=== PATIENT | female | born 1995 | race Caucasian/White ===

== ENCOUNTER 2024-08-13 18:14 | Emergency (ER) | payer OTHER, SELFPAY ==
[2024-08-13 18:14] VITALS: BMI 32.5
[2024-08-13 18:16] VITALS: BP 128/85
[2024-08-13 19:22] VITALS: BP 106/68
[2024-08-13] MEDS: TORADOL 30 MG IV (20:12)
[2024-08-13] MEDS: ZOFRAN 4 MG IV (20:12)
[2024-08-13] MEDS: NSS 1000 IV (20:13)
[2024-08-13 20:27] LABS: % Basophils 0.4 % (0-2); % Immature Granulocytes 0.3 % (0-0.5); % Lymphocytes 6.1 % (20.5-51.1); % Monocytes 2.8 % (1.7-9.3); % Neutrophils 90.4 % (42.2-75.2); Absolute Lymphocytes 0.5 10^3/uL (1.2-3.4); Absolute Monocytes 0.2 10^3/uL (0.1-0.6); Absolute Neutrophils 6.8 10^3/uL (1.4-6.5); Hematocrit 33.5 % (37.0-47.0); Hemoglobin 12.1 g/dL (12.0-16.0); Mean Corp Hgb Conc. 36.1 g/dL (33.0-37.0); Mean Corpuscular Hgb 28.8 pg (27.0-31.0); Mean Corpuscular Volume 79.8 fL (81.0-99.0); Mean Platelet Volume 9.4 fL (7.4-10.4); Nucleated Red Blood Cells % 0 %; Platelet Count 197 10^3/uL (130-400); Red Cell Dist. Width 12.7 % (11.5-14.5); White Blood Cell Count 7.5 10^3/uL (4.8-10.8)
[2024-08-13 20:46] LABS: Blood Urea Nitrogen 12 mg/dl (7-17); Calcium 8.9 mg/dl (8.4-10.2); Carbon Dioxide 24 mmol/L (22-30); Chloride 101 mmol/L (98-107); Estimated Creatinine Clearance > 125 ml/min; Glucose 154 mg/dl (70-99); Potassium 3.7 mmol/L (3.5-5.1); Sodium 139 mmol/L (135-145); eGFR > 60.00
[2024-08-13 20:49] VITALS: BP 96/68
[2024-08-13 20:50] VITALS: BP 96/68
[2024-08-13 21:00] VITALS: BP 89/69
--- NOTE | 2024-08-13 21:11 | ED.GENMED ---
History of Present Illness
General
Chief Complaint: Cold/Flu/URI Symptoms
Source: patient
Time Seen by Provider: 08/13/24 19:33
History of Present Illness
History of Present Illness:
29-year-old female presenting to the emergency department for evaluation after being diagnosed with pneumonia earlier today by urgent care, stating feels generally weak, nauseous, continued cough and had a fever of 104.2 this evening. Patient was
prescribed a Z-Evgeny and prednisone at the urgent care she was at earlier today. Notes that symptoms started mid week. Significant other who is also in the room with the patient was diagnosed with pneumonia as well about 2 weeks ago with similar
symptoms. Patient did take Tylenol today with last dose being around noon. No other concerns presently. Patient does report taking 2 negative COVID tests at home.
Past History
Past History
ED Past Medical History: Other (Removal of wisdom teeth)
ED Past Surgical History: None
Social History
Tobacco: Non-smoker
Alcohol: None
Drug: None
Personal: Single
Living: with family
Employment: Employed
Family History
Family History: Other (Celiac disease)
Review of Systems
Review of Systems
All Other Systems: ROS reviewed and negative except as documented in HPI and ROS
Phy Exam
Physical Exam
Physical Exam:
GENERAL: Alert , appears as if she is feeling unwell but in no acute distress
EYE: conjunctiva clear
NECK: Supple
ENT: o/p clr, mmm.
CARDIAC: Tachycardic rate and rhythm
LUNGS: Clear breath sounds bilaterally, no acute respiratory distress, no wheezes/rales/rhonchi
NEUROLOGICAL: Alert and oriented
SKIN: Warm and dry, skin intact.
MUSCULOSKELETAL: well perfused.
PSYCH: Normal and appropriate interaction.
Scores
Heart Failure Risk
Heart Failure Risk Score: Not Applicable
Heart Score for Chest Pain Patients
STEMI patient?: Not applicable
Withdrawal Assessment of Alcohol
Withdrawal Assessment Completed?: Not applicable
Sepsis
Sepsis Screening
Sepsis Assessment: Sepsis Ruled Out
Sepsis Screen
Sepsis Screen: Sepsis Ruled Out
Date: 08/13/24
Time: :
Course
Orders/Labs/Results
Orders:
Orders
08/13/24 19:45
0.9% Sodium Chloride 1000 ml [Nss] 1,000 ml IV BOLUS
Ketorolac [Toradol] 30 mg IV NOW STA
Ondansetron Injectable [Zofran] 4 mg IV NOW STA
08/13/24 20:09
Basic Metabolic Panel Urgent
Complete Blood Count/With Diff Urgent
Abnormal Lab Results
08/13/24
20:09
Hct 33.5 L %
(37.0-47.0)
MCV 79.8 L fL
(81.0-99.0)
Absolute Neuts (auto) 6.8 H 10^3/uL
(1.4-6.5)
Absolute Lymphs (auto) 0.5 L 10^3/uL
(1.2-3.4)
Neutrophils % 90.4 H %
(42.2-75.2)
Lymphocytes % 6.1 L %
(20.5-51.1)
Glucose 154 H mg/dl
(70-99)
08/13/24 20:09
08/13/24 20:09
Vital Signs
Initial and Last Documented VS:
Initial Vital Signs
Temp Pulse Resp BP Pulse Ox
103.2 F H 116 20 128/85 98
08/13/24 18:16 08/13/24 18:16 08/13/24 18:16 08/13/24 18:16 08/13/24 18:16
Last Documented Vital Signs
Temp Pulse Resp BP Pulse Ox
100.3 F 102 22 96/68 94
08/13/24 20:50 08/13/24 20:50 08/13/24 20:50 08/13/24 20:50 08/13/24 20:50
MDM/Problems Addressed
Differential Diagnosis Includes:
Pneumonia, flu, other viral etiology, dehydration
MDM/Problems Addressed:
29-year-old female presenting to the emergency department for evaluation after being diagnosed with pneumonia earlier in the day, reports continued fever and generally feeling unwell. She is febrile here, tachycardic and appears as if she is not
feeling very well. Will check labs and treat with Toradol Zofran and fluids. Patient already initiated on antibiotics and had a chest x-ray earlier today at the urgent care which confirmed pneumonia. Anticipate discharge home following supportive
care.
*Pulse Oximetry
Patient hypoxic: no
*Critical Care Note
Total Time (30-74mins, 75-104mins- exclusive of procedures): Not Applicable
Patient Management
Escalation/DeEscalation of care consider admission/obs:
On reevaluation patient's fevers much improved as well as her tachycardia. She reports feeling much better. Stable for discharge home. May continue medications that were prescribed by urgent care. Advised on return precautions to the ER.
ED Attending Note
-
Portions of this chart may have been created with voice recognition software.� Occasional wrong word or��sound alike� substitutions may have occurred due to the inherent limitations of voice recognition software.
Discharge Plan
Departure
Patient Disposition: Home (Routine Discharge)
Date of Disposition: 08/13/24
Time of Disposition: 21:11
Patient with high blood pressure during this ER visit?: No
Discharge Problem:
Pneumonia
Instructions: Pneumonia
Prescriptions:
No Action
sertraline 100 MG tablet
100 mg PO DAILY
bupropion HCl 100 MG tablet
100 mg PO DAILY
oseltamivir 75 MG capsule
75 mg PO BID Qty: 9 0RF
Referrals:
Doris Melgoza MD [Family Provider] -
Interventions
Interventions:
*Risk Screen - Suicide Last Done: 08/13/24 18:16
*General Assessment Last Done: 08/13/24 18:16
*Neglect/Abuse Screening Last Done: 08/13/24 18:16
ED- Fall Risk Assessment Last Done: 08/13/24 19:25
ED- Pulmonary Assessment Last Done: 08/13/24 19:25
Discharge Date and Time
Print Language: PALESTINIAN
== END 2024-08-13 22:55 | disposition home or self-care (01) ==
LOC: EMR 18:14
PROVIDERS: Physician Assistant Medical; EMERGENCY PHYSICIAN Student in an Organized Health Care Education/Training Program; FAMILY PHYSICIAN Family Medicine
DX: J18.9 Pneumonia, unspecified organism (principal)
CPT/HCPCS: 99284; 96374; 96375; 96361; 80048; 85025

== ENCOUNTER → 2024-12-11 17:14 | Outpatient (REF) | payer OTHER, SELFPAY | LOC: RAD 17:14 | PROVIDERS: ATTENDING PHYSICIAN Nurse Practitioner Family | DX: R10.2 Pelvic and perineal pain (principal) | CPT/HCPCS: 76830; 76856 ==

== ENCOUNTER → 2025-02-27 15:19 | Outpatient (REF) | payer OTHER, SELFPAY | LOC: RAD 15:19 | PROVIDERS: ATTENDING PHYSICIAN Nurse Practitioner Family | DX: R10.2 Pelvic and perineal pain (principal) | CPT/HCPCS: 76830; 76856 ==